=== PATIENT | female | born 1975 | race African-American/Black ===

== ENCOUNTER 2018-03-20 13:16 | Inpatient (IN) | payer MEDICAID ==
[~2018-03-20] VITALS: Ht 165.1 cm; Wt 148.1 kg
[~2018-03-20 13:16] MED LIST: AMOX1TAB12 PO; APIX5TAB PO; BUPR1PAT7 TD; CEFD300C37 PO; CITA40TA12 PO; DIAZ2TAB PO; ENOX40SY4 SQ; HYDR-3307 PO; LISI40TA PO; METO-93 PO; METO50TA4 PO; OXYC5TAB2 PO; RIVA15TA PO; VANC1VIA3 PO
[2018-03-20 14:24] LABS: BASOPHILS # (AUTO) 0.03 x10^3/uL (0-0.1); BASOPHILS % (AUTO) 1 % (0-1); EOSINOPHILS # (AUTO) 0.08 x10^3/uL (0-0.4); EOSINOPHILS % (AUTO) 1 % (1-7); LYMPHOCYTES # (AUTO) 2.27 x10^3/uL (1-3.4); LYMPHOCYTES % (AUTO) 36 % (22-44); MD NO; MEAN CORPUSCULAR HEMOGLOBIN 26.1 pg (27.0-34.8); MEAN CORPUSCULAR HGB CONC 33.1 g/dL (32.4-35.8); MEAN CORPUSCULAR VOLUME 78.8 fL (80-100); MEAN PLATELET VOLUME 9.5 fL (7.4-10.4); MONOCYTES # (AUTO) 0.37 x10^3/uL (0.2-0.8); MONOCYTES % (AUTO) 6 % (2-9); NEUTROPHILS # (AUTO) 3.49 x10^3/uL (1.8-6.8); NEUTROPHILS % (AUTO) 56 % (42-75); PLATELET COUNT 272 x10^3/uL (130-400); RED CELL DISTRIBUTION WIDTH 14.4 % (9.6-15.2)
[2018-03-20 14:27] LABS: ALANINE AMINOTRANSFERASE 29 U/L (12-78); ALBUMIN 3.9 g/dL (3.4-5.0); ANION GAP 9 mmol/L (5-15); CALCIUM 9.1 mg/dL (8.5-10.1); CHLORIDE 104 mmol/L (98-107); CREATININE 1.12 mg/dL (0.55-1.02)
[2018-03-20 14:33] LABS: ALKALINE PHOSPHATASE 118 U/L (45-117); BILIRUBIN,TOTAL 0.4 mg/dL (0.2-1.0); TOTAL PROTEIN 8.4 g/dL (6.4-8.2); TROPONIN I < 0.015 ng/mL (0.000-0.045)
[2018-03-20] MEDS ORDERED: MORPHINE SULFATE 4 MG/ML, 1ML ONE (14:35)
[2018-03-20] MEDS ORDERED: ONDANSETRON ODT 4 MG ONE (14:35)
[2018-03-20] MEDS ORDERED: ONDANSETRON 2MG/ML, 2ML IVPush ONE (15:00)
[2018-03-20] MEDS ORDERED: morphine SULFATE 10 MG/ML, 1ML IVPush ONE (15:00)
[2018-03-20] MEDS ORDERED: KETOROLAC 30 MG/1 ML ONE (15:34)
[2018-03-20] MEDS ORDERED: OMNIPAQUE 350 MG/ML, 150 ML BOTTLE ONE (16:00)
[2018-03-20] MEDS: SODIUM CHLORIDE 0.9% 1,000 ML IV SCH ×2 (16:00→21:00)
[2018-03-20] MEDS ORDERED: KETOROLAC 60 MG/2 ML IVPush ONE (16:00)
[2018-03-20] MEDS ORDERED: LABETALOL 5MG/ML, 20ML ONE (16:37)
[2018-03-20] MEDS ORDERED: LABETALOL 5MG/ML, 20ML IVPush ONE (17:00)
[2018-03-20] MEDS ORDERED: SODIUM CHLORIDE 0.9% 1,000 ML IV SCH (17:30)
[2018-03-20] MEDS ORDERED: hydrALAzine 20 MG/ML, 1ML IV PRN (17:30)
[2018-03-20] MEDS ORDERED: ENOXAPARIN 40 MG/0.4 ML SQ SCH (17:30)
[2018-03-20] MEDS ORDERED: ONDANSETRON ODT 4 MG PO PRN (17:30)
[2018-03-20] MEDS ORDERED: ONDANSETRON 2MG/ML, 2ML IVPush PRN (17:30)
[2018-03-20 17:41] LABS: HEMOGLOBIN A1C 11.3 % (4.2-6.3)
[2018-03-20 18:12] VITALS: BP 132/89
[2018-03-20] MEDS ORDERED: IBUPROFEN 200 MG TABLET ONE (18:24)
[2018-03-20] MEDS: METHOCARBAMOL 500 MG TABLET PO PRN (18:26)
[2018-03-20] MEDS: ACETAMINOPHEN 325 MG TABLET PO PRN (18:27)
[2018-03-20] MEDS: INSULIN LISPRO 100 UNITS/ML, PEN SQ-INSULIN SCH ×2 (18:30→21:53)
[2018-03-20] MEDS ORDERED: MAALOX/HYOSCYAMINE/LIDOCAINE 45 ML BTL PO PRN (19:00)
[2018-03-20] MEDS ORDERED: SIMETHICONE 80 MG CHEW TAB PO ONE (19:00)
[2018-03-20 20:00] VITALS: BP 134/84
[2018-03-20 20:41] LABS: TROPONIN I 0.033 ng/mL (0.000-0.045)
[2018-03-20] MEDS ORDERED: NITROGLYCERIN 0.4 MG/SPRAY SL PRN (21:00)
[2018-03-20] MEDS ORDERED: NITROGLYCERIN 0.4 MG BOTTLE (25 TABS) SL PRN (21:00)
[2018-03-20 21:26] VITALS: BP 139/78
[2018-03-20] MEDS: APIXABAN 5 MG TABLET PO SCH (21:39)
[2018-03-20] MEDS: LISINOPRIL 20 MG TABLET PO SCH (21:40)
[2018-03-20] MEDS: METOPROLOL SUCCINATE 50 MG TAB.ER.24H PO SCH (21:40)
[2018-03-20] MEDS ORDERED: KETOROLAC 30 MG/1 ML IVPush ONE (22:00)
[2018-03-20] MEDS: INSULIN GLARGINE 100 UNITS/ML, PEN SQ-INSULIN SCH (22:14)
[2018-03-21 02:00] VITALS: BP 110/74
[2018-03-21 02:28] LABS: BASOPHILS # (AUTO) 0.04 x10^3/uL (0-0.1); BASOPHILS % (AUTO) 1 % (0-1); EOSINOPHILS # (AUTO) 0.11 x10^3/uL (0-0.4); EOSINOPHILS % (AUTO) 2 % (1-7); LYMPHOCYTES # (AUTO) 2.29 x10^3/uL (1-3.4); LYMPHOCYTES % (AUTO) 40 % (22-44); MD NO; MEAN CORPUSCULAR HEMOGLOBIN 26.1 pg (27.0-34.8); MEAN CORPUSCULAR HGB CONC 33.1 g/dL (32.4-35.8); MEAN CORPUSCULAR VOLUME 78.8 fL (80-100); MEAN PLATELET VOLUME 9.3 fL (7.4-10.4); MONOCYTES % (AUTO) 7 % (2-9); NEUTROPHILS # (AUTO) 2.86 x10^3/uL (1.8-6.8); NEUTROPHILS % (AUTO) 50 % (42-75); PLATELET COUNT 288 x10^3/uL (130-400); RED BLOOD COUNT 5.31 x10^6/uL (3.82-5.3); RED CELL DISTRIBUTION WIDTH 14.4 % (9.6-15.2)
[2018-03-21 02:38] LABS: ALANINE AMINOTRANSFERASE 26 U/L (12-78); ALBUMIN 3.5 g/dL (3.4-5.0); ANION GAP 10 mmol/L (5-15); CALCIUM 8.2 mg/dL (8.5-10.1); CHLORIDE 106 mmol/L (98-107); CHOLESTEROL, TOTAL 192 mg/dL (140-239); CREATININE 0.97 mg/dL (0.55-1.02); TRIGLYCERIDES 206 mg/dL (50-200); VLDL CHOLESTEROL 41 mg/dL (0-25)
[2018-03-21 02:42] LABS: TROPONIN I 0.023 ng/mL (0.000-0.045)
[2018-03-21 02:48] LABS: ALKALINE PHOSPHATASE 100 U/L (45-117); BILIRUBIN,TOTAL 0.5 mg/dL (0.2-1.0); CHOL/HDL RATIO 5.8; HDL CHOL % 17 % (28-40); HDL CHOLESTEROL (DIRECT) 33 mg/dL (40-60); LDL CHOLESTEROL,CALCULATED 118 mg/dL (54-169); LDL/HDL RATIO 3.6 (0.5-3.0); THYROID STIMULATING HORMONE 0.894 mIU/L (0.358-3.740); TOTAL PROTEIN 7.5 g/dL (6.4-8.2)
[2018-03-21] MEDS: ACETAMINOPHEN 325 MG TABLET PO PRN ×3 (03:00→17:40)
[2018-03-21] MEDS ORDERED: MORPHINE SULFATE 4 MG/ML, 1ML IV ONE (05:00)
[2018-03-21] MEDS: SODIUM CHLORIDE 0.9% 1,000 ML IV SCH (05:15)
[2018-03-21 07:35] VITALS: BP 104/58
[2018-03-21] MEDS ORDERED: IBUPROFEN 200 MG TABLET ONE (08:41)
[2018-03-21 08:48] VITALS: BP 112/75
[2018-03-21] MEDS: IBUPROFEN 600 MG TABLET PO PRN (08:50)
[2018-03-21] MEDS: LISINOPRIL 20 MG TABLET PO SCH ×2 (08:51→19:55)
[2018-03-21] MEDS: METHOCARBAMOL 500 MG TABLET PO PRN ×3 (08:51→20:27)
[2018-03-21] MEDS: APIXABAN 5 MG TABLET PO SCH ×2 (08:51→19:55)
[2018-03-21] MEDS: INSULIN GLARGINE 100 UNITS/ML, PEN SQ-INSULIN SCH ×2 (08:52→20:01)
[2018-03-21] MEDS: INSULIN LISPRO 100 UNITS/ML, PEN SQ-INSULIN SCH ×4 (08:53→20:00)
[2018-03-21] MEDS: LIDODERM 5% PATCH TD PRN (08:54)
[2018-03-21 10:10] VITALS: BP 112/68
[2018-03-21] MEDS: METOPROLOL SUCCINATE 50 MG TAB.ER.24H PO SCH ×2 (10:12→19:55)
[2018-03-21] MEDS ORDERED: MAALOX/HYOSCYAMINE/LIDOCAINE 45 ML BTL PO ONE (10:30)
[2018-03-21] MEDS ORDERED: REGADENOSON 0.4 MG/5 ML SYRINGE ONE (10:53)
[2018-03-21 12:59] VITALS: BP 118/78
[2018-03-21] MEDS: PANTOPROZOLE 40MG TABLET PO SCH (17:01)
[2018-03-21] MEDS: GABAPENTIN 400 MG CAPSULE PO SCH ×2 (17:01→19:55)
[2018-03-21 19:52] VITALS: BP 121/69
[2018-03-21] MEDS ORDERED: LORazepam 0.5MG TABLET PO ONE (20:00)
[2018-03-21] MEDS ORDERED: INSULIN GLARGINE 100 UNITS/ML, PEN SQ-INSULIN SCH (21:00)
[2018-03-21 22:07] LABS: MICROSCOPIC NOT IND
[2018-03-21 22:12] LABS: CULTURE INDICATED? NO
[2018-03-21 22:18] LABS: AMPHETAMINE SCREEN, URINE Negative (Negative); BARBITURATE SCREEN, URINE Negative (Negative); BENZODIAZEPINE SCREEN, URINE Negative (Negative); CANNABINOID SCREEN, URINE Negative (Negative); COCAINE SCREEN, URINE Negative (Negative); METHADONE SCREEN, URINE Negative (Negative); OPIATE SCREEN, URINE Positive (Negative)
[2018-03-22] MEDS: IBUPROFEN 600 MG TABLET PO PRN (00:19)
[2018-03-22 01:21] VITALS: BP 148/85
[2018-03-22] MEDS: PANTOPROZOLE 40MG TABLET PO SCH ×2 (04:28→16:34)
[2018-03-22 06:55] LABS: BASOPHILS # (AUTO) 0.03 x10^3/uL (0-0.1); BASOPHILS % (AUTO) 1 % (0-1); EOSINOPHILS # (AUTO) 0.13 x10^3/uL (0-0.4); EOSINOPHILS % (AUTO) 2 % (1-7); LYMPHOCYTES # (AUTO) 1.96 x10^3/uL (1-3.4); LYMPHOCYTES % (AUTO) 35 % (22-44); MD NO; MEAN CORPUSCULAR HEMOGLOBIN 25.4 pg (27.0-34.8); MEAN CORPUSCULAR HGB CONC 32.5 g/dL (32.4-35.8); MEAN CORPUSCULAR VOLUME 78.2 fL (80-100); MEAN PLATELET VOLUME 9.4 fL (7.4-10.4); MONOCYTES # (AUTO) 0.35 x10^3/uL (0.2-0.8); MONOCYTES % (AUTO) 6 % (2-9); NEUTROPHILS # (AUTO) 3.09 x10^3/uL (1.8-6.8); NEUTROPHILS % (AUTO) 56 % (42-75); PLATELET COUNT 258 x10^3/uL (130-400); RED BLOOD COUNT 5.16 x10^6/uL (3.82-5.3); RED CELL DISTRIBUTION WIDTH 14.6 % (9.6-15.2)
[2018-03-22 07:04] LABS: ALANINE AMINOTRANSFERASE 26 U/L (12-78); ALBUMIN 3.2 g/dL (3.4-5.0); ANION GAP 8 mmol/L (5-15); CALCIUM 8.4 mg/dL (8.5-10.1); CHLORIDE 108 mmol/L (98-107); CREATININE 0.87 mg/dL (0.55-1.02)
[2018-03-22 07:06] LABS: ALKALINE PHOSPHATASE 92 U/L (45-117); BILIRUBIN,TOTAL 0.3 mg/dL (0.2-1.0); TOTAL PROTEIN 6.9 g/dL (6.4-8.2)
[2018-03-22 07:11] VITALS: BP 145/79
[2018-03-22] MEDS: LISINOPRIL 20 MG TABLET PO SCH (08:28)
[2018-03-22] MEDS: GABAPENTIN 400 MG CAPSULE PO SCH ×2 (08:28→16:34)
[2018-03-22] MEDS: METHOCARBAMOL 500 MG TABLET PO PRN (08:28)
[2018-03-22] MEDS: METOPROLOL SUCCINATE 50 MG TAB.ER.24H PO SCH (08:28)
[2018-03-22] MEDS: APIXABAN 5 MG TABLET PO SCH (08:29)
[2018-03-22] MEDS: LIDODERM 5% PATCH TD PRN ×2 (08:29→13:11)
[2018-03-22] MEDS: INSULIN GLARGINE 100 UNITS/ML, PEN SQ-INSULIN SCH (08:31)
[2018-03-22] MEDS: INSULIN LISPRO 100 UNITS/ML, PEN SQ-INSULIN SCH ×3 (08:31→16:35)
[2018-03-22] MEDS ORDERED: POLYETHYLENE GLYCOL 17 GM PACKET PO ONE (10:00)
[2018-03-22 13:16] VITALS: BP 141/86
[2018-03-22] MEDS ORDERED: APIX5TAB PO (13:48)
[2018-03-22] MEDS ORDERED: LIDO700A20 TD (13:48)
[2018-03-22] MEDS ORDERED: GABA-827 PO (13:48)
[2018-03-22] MEDS ORDERED: LISI-170 PO (13:48)
[2018-03-22] MEDS ORDERED: IBUP-1222 PO (13:48)
[2018-03-22] MEDS ORDERED: METO-93 PO (13:48)
[2018-03-22] MEDS ORDERED: PANT40TA5 PO (13:48)
[2018-03-22] MEDS ORDERED: METH500T7 PO (13:48)
[2018-03-22] MEDS ORDERED: INSU100I13 SQ-INSULIN (15:00)
[2018-03-22] MEDS ORDERED: METF500T17 PO (15:07)
[2018-03-22] MEDS: ACETAMINOPHEN 325 MG TABLET PO PRN (16:34)
== END 2018-03-22 17:17 | disposition home or self-care (01) | DRG 392 ==
LOC: ED 16:30 → EDIP 16:39 → ED 17:27 → 5SO 17:53
PROVIDERS: ADMIT Hospitalist; ATTEND Hospitalist
DX: K21.9 Gastro-esophageal reflux disease without esophagitis (principal); D68.59 Other primary thrombophilia; I50.20 Unspecified systolic (congestive) heart failure; E78.5 Hyperlipidemia, unspecified; E66.9 Obesity, unspecified; I16.0 Hypertensive urgency; M54.6 Pain in thoracic spine; E11.65 Type 2 diabetes mellitus with hyperglycemia; G89.29 Other chronic pain; I11.0 Hypertensive heart disease with heart failure; I27.20 Pulmonary hypertension, unspecified; Z79.01 Long term (current) use of anticoagulants; Z79.4 Long term (current) use of insulin; Z86.711 Personal history of pulmonary embolism; Z86.718 Personal history of other venous thrombosis and embolism; Z91.19 Patient's noncompliance with other medical treatment and regimen
CPT/HCPCS: 0399T; 36415; 71046; 71275; 72040; 72072; 74018; 76700; 78452; 80053; 80061; 80307; 81003; 82962; 83036; 83690; 83880; 84443; 84484; 85025; 93005; 93017; 93306; 96374; 96375; G0378; J1885; J2405; J2785; Q9967; A9502; C9898; J1815; J2270; J7030

== ENCOUNTER 2018-06-21 10:18 | Emergency (ER) | payer MEDICAID ==
[~2018-06-21] VITALS: Ht 162.6 cm; Wt 137.4 kg
[~2018-06-21 10:18] MED LIST changes: +GABA-827 PO; +IBUP-1222 PO; +INSU100I13 SQ-INSULIN; +LIDO700A20 TD; +LISI-170 PO; +METF500T17 PO; +METH500T7 PO; +PANT40TA5 PO
[2018-06-21 11:03] LABS: MD NO
[2018-06-21 11:04] LABS: BASOPHILS % (AUTO) 1 % (0-1); EOSINOPHILS # (AUTO) 0.08 x10^3/uL (0-0.4); EOSINOPHILS % (AUTO) 1 % (1-7); LYMPHOCYTES # (AUTO) 3.53 x10^3/uL (1-3.4); LYMPHOCYTES % (AUTO) 33 % (22-44); MEAN CORPUSCULAR HEMOGLOBIN 25.7 pg (27.0-34.8); MEAN CORPUSCULAR HGB CONC 32.5 g/dL (32.4-35.8); MEAN CORPUSCULAR VOLUME 78.9 fL (80-100); MEAN PLATELET VOLUME 8.6 fL (7.4-10.4); MONOCYTES # (AUTO) 0.45 x10^3/uL (0.2-0.8); MONOCYTES % (AUTO) 4 % (2-9); NEUTROPHILS # (AUTO) 6.51 x10^3/uL (1.8-6.8); NEUTROPHILS % (AUTO) 61 % (42-75); PLATELET COUNT 344 x10^3/uL (130-400); RED CELL DISTRIBUTION WIDTH 14.7 % (9.6-15.2)
--- NOTE | 2018-06-21 11:07 | NUR ---
DOOR OPERATOR: TO ROOM FROM LOBBY
[2018-06-21 11:13] LABS: ANION GAP 7 mmol/L (5-15); CALCIUM 8.3 mg/dL (8.5-10.1); CHLORIDE 108 mmol/L (98-107); CREATININE 0.93 mg/dL (0.55-1.02); INTERNATIONAL NORMALIZED RATIO 0.98 (0.93-1.1); PROTHROMBIN TIME 10.4 Seconds (9.6-11.5)
--- NOTE | 2018-06-21 11:16 | NUR ---
PT RESTING ON GURMIRANDA. NADN. MONITORS APPLIED. PT STATES SHE HAS HAD CP TO L SIDE AND DENNY PAIN STARTED 1 WK AGO WAS SEEN FOR SAME AT [facility]. PT HAS HX PE 1 YR AGO. ON ELIQUIS. PT STATES SHE HAS BEEN OFF ELIQUIS X [address] RIDLEY AT BEDSIDE.
[2018-06-21 11:17] LABS: TROPONIN I < 0.015 ng/mL (0.000-0.045)
[2018-06-21] MEDS ORDERED: KETOROLAC 30 MG/1 ML IVPush ONE (11:30)
[2018-06-21] MEDS ORDERED: KETOROLAC 30 MG/1 ML ONE (11:39)
--- NOTE | 2018-06-21 12:22 | NUR ---
REPORT GIVEN TO MILES STEWART.
[2018-06-21] MEDS ORDERED: HYDROcodone/APAP 5/325 TABLET PO ONE (12:30)
[2018-06-21] MEDS ORDERED: HYDROcodone/APAP 5/325 TABLET ONE (12:41)
[2018-06-21 13:02] VITALS: BP 148/97
== END 2018-06-21 13:05 | disposition home or self-care (01) ==
LOC: ED 12:54
DX: R07.89 Other chest pain (principal); I11.0 Hypertensive heart disease with heart failure; I50.9 Heart failure, unspecified; E11.9 Type 2 diabetes mellitus without complications; Z86.718 Personal history of other venous thrombosis and embolism; Z90.49 Acquired absence of other specified parts of digestive tract
CPT/HCPCS: 36415; 71046; 80048; 82040; 84484; 85025; 85610; 85730; 93005; 96374; 99284; J1885

== ENCOUNTER 2020-06-02 10:12 | Emergency (ER) | payer MEDICAID ==
[~2020-06-02] VITALS: Ht 160 cm; Wt 136.6 kg
[~2020-06-02 10:12] MED LIST changes: +HYDR-3246 PO; -HYDR-3307 PO; -PANT40TA5 PO; +PANT40TA6 PO
--- NOTE | 2020-06-02 10:31 | NUR ---
merchandise handler note: Pt to room from lobby.
--- NOTE | 2020-06-02 10:40 | NUR ---
pt has been ambulated to room from [facility]. here for chest discomfort with hx of CHF. pt is ambulatory and in no resp. distress.
[2020-06-02] MEDS ORDERED: SODIUM CHLORIDE FLUSH 10ML SYR IVF ONE (11:00)
[2020-06-02] MEDS ORDERED: KETOROLAC 30 MG/1 ML IVPush ONE (11:00)
--- NOTE | 2020-06-02 11:00 | NUR ---
lab has been to bedside to draw. EKG at bedside
[2020-06-02 11:15] LABS: BASOPHILS % (AUTO) 1 % (0-1); EOSINOPHILS % (AUTO) 2 % (1-7); LYMPHOCYTES % (AUTO) 37 % (22-44); MEAN CORPUSCULAR HEMOGLOBIN 26.5 pg (27.0-34.8); MEAN PLATELET VOLUME 8.4 fL (7.4-10.4); MONOCYTES % (AUTO) 8 % (2-9); NEUTROPHILS % (AUTO) 52 % (42-75); PLATELET COUNT 297 x10^3/uL (130-400); RED BLOOD COUNT 4.52 x10^6/uL (3.82-5.3); RED CELL DISTRIBUTION WIDTH 15.4 % (9.6-15.2)
[2020-06-02 11:16] LABS: MD NO
[2020-06-02 11:29] LABS: ALBUMIN 3.6 g/dL (3.4-5.0); ANION GAP 8 mmol/L (5-15); CALCIUM 8.2 mg/dL (8.5-10.1); CHLORIDE 106 mmol/L (98-107); CREATININE 0.93 mg/dL (0.55-1.02)
[2020-06-02 11:32] LABS: TROPONIN I < 0.015 ng/mL (0.000-0.045)
--- NOTE | 2020-06-02 11:44 | NUR ---
report to Lenny AQUINO
[2020-06-02] MEDS ORDERED: KETOROLAC 30 MG/1 ML ONE (11:54)
--- NOTE | 2020-06-02 12:05 | NUR ---
HX OF PE WITH CP THAT STARTED LAST NOC SINCE DRIVING FROM [facility] IN THE DAYS PRIOR. PT IS ON ELIQUIS. PT PLACED ON MONITOR.
[2020-06-02] MEDS ORDERED: OMNIPAQUE 350 MG/ML, 100ML BOTTLE ONE (12:19)
--- NOTE | 2020-06-02 12:30 | NUR ---
pt has been medicated for pain. pt sitting up on gurney. awaiting test results. pt updated on POC. no family at bedside
--- NOTE | 2020-06-02 13:00 | NUR ---
Dr. Crespo at bedside for recheck
--- NOTE | 2020-06-02 13:24 | NUR ---
report to Carlene AQUINO
[2020-06-02 13:50] VITALS: BP 127/71
== END 2020-06-02 14:05 | disposition home or self-care (01) ==
LOC: ED 11:35
DX: R07.89 Other chest pain (principal); R06.02 Shortness of breath; I11.0 Hypertensive heart disease with heart failure; I50.9 Heart failure, unspecified; E11.9 Type 2 diabetes mellitus without complications; Z90.49 Acquired absence of other specified parts of digestive tract; F17.200 Nicotine dependence, unspecified, uncomplicated
CPT/HCPCS: 36415; 71045; 71275; 80048; 82040; 84484; 85025; 93005; 96374; 99285; J1885; Q9967